=== PATIENT | male | born 1995 | race Caucasian/White ===

== ENCOUNTER 2021-02-17 11:23 | Emergency (ER) | payer OTHER ==
[2021-02-17 12:08] VITALS: BP 143/82
--- NOTE | 2021-02-17 13:37 | ED Physician Documentation ---
History of Present Illness - Stated complaint Stated Complaint: CHEST PX, PALPATATIONS - Chief complaint Chief Complaint: Cardiac - History obtained from History obtained from: Patient - History of Present Illness Timing: Today Pain level max: 0 Pain level now: 0 - Additonal information Additional information: 25 year old male states that he has felt his heart beating harder than usual for the past few days. States feels like skipped beats and irregular beats. Nothing makes it better or worse. No similar symptoms previously. States he was started on lisinopril for hypertension, but ran out a week ago. He states his doctor wanted to check him in 30 days to see if his BP was better. Review of Systems Constitutional: denies: Fever, Chills Throat: denies: Oral lesions / sores, Sore throat Cardiac: reports: Palpitations. denies: Chest pain / pressure, Calf pain Respiratory: denies: Cough GI: denies: Nausea, Vomiting, Diarrhea PD PAST MEDICAL HISTORY - Past Medical History Past Medical History: No - Past Surgical History Past Surgical History: No - Allergies Allergies/Adverse Reactions: Allergies Allergy/AdvReac Type Severity Reaction Status Date / Time No Known Drug Allergies Allergy Verified 02/17/21 11:51 - Living Situation Living Arrangement: reports: At home - Social History Does the pt smoke?: No Does the pt have substance abuse?: No - Family History Family history: reports: Non contributory PD ED PE NORMAL - Vitals Vital signs reviewed: Yes - General General: Alert and oriented X 3, No acute distress - HEENT HEENT: Moist mucous membranes - Neck Neck: Supple, no meningeal sign - Cardiac Cardiac: RRR, No murmur, Strong equal pulses - Respiratory Respiratory: No respiratory distress, Clear bilaterally - Abdomen Abdomen: Soft, Non tender, Non distended - Derm Derm: Warm and dry - Extremities Extremities: No edema, No calf tenderness / cord - Neuro Neuro: Alert and oriented X 3 - Psych Psych: Normal mood, Normal affect Results - Vitals Vitals: Vital Signs - 24 hr 02/17/21 11:48 Temperature 36.2 C L Heart Rate 82 Respiratory 16 Rate Blood Pressure 143/82 H O2 Saturation 99 Oxygen O2 Source Room air - EKG (time done) 1131 Rate: Rate (enter#) (79) Rhythm: NSR [place]: Normal Intervals: Normal NC QRS: Normal Ischemia: Normal ST segments PD MEDICAL DECISION MAKING - ED course Complexity details: reviewed results, re-evaluated patient, considered diffe rential, d/w patient ED course: History is consistent with PVCs versus PACs. No palpitations here. No changes on telemetry. No indication for blood work at this time. Normal EKG. We will have him follow-up with his doctor for Holter monitor. Patient counseled regarding signs and symptoms for which I believe and urgent re-evaluation would be necessary. Patient with good understanding of and agreement to plan and is comfortable going home at this time This document was made in part using voice recognition software. While efforts are made to proofread this document, sound alike and grammatical errors may occur. Departure - Departure Disposition: 01 Home, Self Care Clinical Impression: Heart palpitations Condition: Good Instructions: ED Palpitations Follow-Up: your,doctor in 1 week [Other] Comments: Follow up with your doctor for further care. Return if you worsen. Your EKG is normal today. It sounds as if you are likely having premature ventricular contractions. Your doctor can order a monitoring coordinator for you to wear and see if there are abnormal heart beats. Discharge Date/Time: 02/17/21 14:44
== END 2021-02-17 14:44 | disposition home or self-care (01) ==
LOC: ED 11:23
DX: R00.2 Palpitations (principal); I10 Essential (primary) hypertension; T46.4X6A Underdosing of angiotensin-converting-enzyme inhibitors, initial encounter
CPT/HCPCS: 93005; 99283; 99284